=== PATIENT | female | born 1940 | race Hispanic/Latino ===

== ENCOUNTER 2018-06-07 14:49 | Emergency (ER) | payer MEDICARE, BC ==
[2018-06-07 14:50] VITALS: BMI 27.4
--- NOTE | 2018-06-07 15:14 | ED PDOC ---
Arrival/HPI - General Chief Complaint: Lower Extremity Problem/Injury Time Seen by Provider: 06/07/18 14:54 Historian: Patient, Family (daughter) - History of Present Illness Time/Duration: Other (several days) Symptom Onset: Gradual Symptom Course: Worsening Quality: Aching Severity Level: Mild Activities at Onset: Rest Associated Symptoms (Text): 06/07/18 15:12 Patient complains of a several day history of left lower extremity swelling and left calf pain. The right leg is not affected. There is no injury or trauma. She reports that in the morning the pain and swelling are better, but as the day progresses the pain and swelling become worse. She was directed to the emergency department by her PMD to rule out a DVT. No chest pain or dyspnea. No fever or chills. Past Medical History - Infectious Disease Hx of Infectious Diseases: None - Tetanus Immunization Tetanus Immunization: Unknown - Reproductive Menopause: Yes - Cardiac Hx Hypertension: Yes - Pulmonary Hx Respiratory Disorders: Yes Hx Asthma: Yes - Neurological Hx Paralysis: No - Renal Hx Renal Disorder: No - Endocrine/Metabolic Hx Hypothyroidism: Yes - Hematological/Oncological Hx Blood Transfusion Reaction: (NA) - Integumentary Hx Dermatological Disorder: No - Musculoskeletal/Rheumatological Hx Musculoskeletal Disorders: Yes (HX FX WRIST/ANKLE) - Gastrointestinal Hx Gastroesophageal Reflux: Yes - Genitourinary/Gynecological Hx Genitourinary Disorders: No - Psychiatric Hx Substance Use: No - Surgical History Hx Cataract Extraction: Yes (x2) Hx Cholecystectomy: Yes Other/Comment: ankle L - Anesthesia Hx Anesthesia Reactions: No Hx Malignant Hyperthermia: No - Suicidal Assessment Feels Threatened In Home Enviroment: No Family/Social History - Physician Review Nursing Documentation Reviewed: Yes Family/Social History: Unknown Family HX Smoking Status: Former Smoker (quit smoking many years ago) Hx Alcohol Use: No (RARELY) Hx Substance Use: No Hx Substance Use Treatment: No Allergies/Home Meds Allergies/Adverse Reactions: Allergies No Known Allergies Allergy (Verified 09/25/15 19:34) Home Medications: Home Meds Medication Instructions Recorded Confirmed Levothyroxine [Synthroid] 112 mcg PO QAM 02/18/13 03/04/18 Cholecalciferol (Vitamin D3) 5,000 iu PO DAILY 05/21/15 03/04/18 [Vitamin D3] Escitalopram [Lexapro] 10 mg PO HS 05/21/15 03/04/18 Aspirin [Ecotrin] 81 mg PO DAILY 05/17/16 03/04/18 Fenofibrate [Tricor] 145 mg PO DAILY 05/17/16 03/04/18 Multivit-Min/Iron/Folic/Lutein 1 tab PO DAILY 05/17/16 03/04/18 [Centrum Silver Women Tablet] Polyethylene Glycol 3350 [Miralax] 17 gm PO DAILY 03/04/18 03/04/18 Tiotropium Br/Olodaterol HCl 4 gm IH DAILY 03/04/18 03/04/18 [Stiolto Respimat Inhal [place]] Review of Systems - Physician Review All systems were reviewed & negative as marked: Yes - Review of Systems Constitutional: absent: Fatigue, Fevers Respiratory: absent: SOB, Cough, Sputum, Wheezing Cardiovascular: absent: Chest Pain, Palpitations, Syncope Gastrointestinal: absent: Abdominal Pain, Nausea, Vomiting Neurological: absent: Headache, Dizziness, Focal Weakness Physical Exam Vital Signs Temp Pulse Resp BP Pulse Ox 06/07/18 14:50 98.2 F 85 20 150/92 H 93 L Temperature: Afebrile Blood Pressure: Hypertensive Pulse: Regular Respiratory Rate: Normal Appearance: Positive for: Well-Appearing, Non-Toxic, Comfortable Pain Distress: None Mental Status: Positive for: Alert and Oriented X 3 - Systems Exam Head: Present: Atraumatic, Normocephalic Pupils: Present: PERRL Extroacular Muscles: Present: EOMI Conjunctiva: Present: Normal Mouth: Present: Moist Mucous Membranes Pharnyx: No: ERYTHEMA, EXUDATE, TONSILS ENLARGED Respiratory/Chest: Present: Clear to Auscultation, Good Air Exchange. No: Respiratory Distress, Accessory Muscle Use Cardiovascular: Present: Regular Rate and Rhythm, Normal S1, S2. No: Murmurs Abdomen: No: Tenderness, Distention, Peritoneal Signs, Rebound, Guarding Back: Present: Normal Inspection Upper Extremity: Present: Normal Inspection. No: Cyanosis, Edema Lower Extremity: Present: CALF TENDERNESS, NORMAL PULSES, Normal ROM, Lala's Sign, Tenderness, Swelling, Neurovascularly Intact, Other (Left lower leg swelling and calf tenderness.). No: Cyanosis, Erythema, Deformity Neurological: Present: GCS=15, CN II-XII Intact, Speech Normal, Motor Func Grossly Intact Skin: Present: Warm, Dry, Normal Color. No: Rashes Psychiatric: Present: Alert, Oriented x 3, Normal Insight, Normal Concentration Medical Decision Making - RAD Interpretation Radiology Orders: 06/07/18 15:10 DUPLEX LOWER EXTRM VEIN LEFT [US] Stat Venous Doppler of the left lower extremity as read by the radiologist is negative for DVT. Tourist Cabin Keeper: Radiologist Disposition/Present on Arrival - Present on Arrival Any Indicators Present on Arrival: No History of DVT/PE: No History of Uncontrolled Diabetes: No Urinary Catheter: No History of Decub. Ulcer: No History Surgical Site Infection Following: None - Disposition Have Diagnosis and Disposition been Completed?: Yes Diagnosis: Gastrocnemius strain, left Disposition: HOME/ ROUTINE Disposition Time: 16:24 Patient Plan: Discharge Condition: GOOD Discharge Instructions (ExitCare): Lower Extremity Muscle Strain (DC) Additional Instructions: Rest ice and elevation. Tylenol or Advil as directed on bottle as needed. Follow-up with PMD. Follow up in ER as needed. Forms: [employer] (Bengali)
[2018-06-07 15:32] LABS: BASO # 0.03 K/mm3 (0.0-2.0); BASO % 0.4 % (0.0-3.0); EOS # 0.1 (0.0-0.7); EOS % 1.8 % (1.5-5.0); LYMPH # 1.3 (1.2-3.4); LYMPH % 18.3 % (22.0-35.0); MEAN CELL VOLUME 90.4 fl (80.0-105.0); MEAN CORPUSCULAR HEMOGLOBIN 29.7 pg (25.0-35.0); MEAN CORPUSCULAR HGB CONC 32.8 g/dl (31.0-37.0); MEAN PLATELET VOLUME 9.1 fl (7.0-11.0); MONO # 0.5 (0.1-0.6); MONO % 7.3 % (1.0-6.0); RBC 4.38 10^6/uL (3.5-6.1); RED CELL DISTRIBUTION WIDTH 14.2 % (11.5-14.5); WHITE BLOOD COUNT 6.8 10^3/uL (4.5-11.0)
[2018-06-07 15:50] LABS: INR 1.04; PARTIAL THROMBOPLASTIN TIME 32.7 Seconds (26.9-38.3); PROTHROMBIN TIME 11.5 SECONDS (9.4-12.5)
[2018-06-07 15:52] LABS: ALB/GLOB RATIO 1.1 (1.1-1.8); ALBUMIN 4.4 g/dL (3.0-4.8); ALT/SGPT 18 U/L (7-56); AST/SGOT 46 U/L (14-36); BLOOD UREA NITROGEN 34 mg/dL (7-21); CALCIUM 10.9 mg/dL (8.4-10.5); GFR NON-AFRICAN AMERICAN 54
[2018-06-07 16:47] VITALS: BP 141/79; PULSE 63; RESP 18; TEMP 98.1; O2SAT 98
--- NOTE | 2018-06-10 18:48 | US ---
PROCEDURE: Left lower extremity venous US HISTORY: Leg pain and swelling. Evaluate for DVT. PHYSICIAN(S): Andres Arnold MD. TECHNIQUE: Duplex sonography and color-flow Doppler with graded compression were used to evaluate the deep venous system of the left lower extremity. The exam is somewhat limited by edema FINDINGS: The visualized deep venous system of the left lower extremity is sonographically normal and compressible. Normal wave forms and augmentation are seen. There is no sonographic evidence for deep venous thrombosis in the visualized segments of the left lower extremity. IMPRESSION: 1. No sonographic evidence for deep venous thrombosis in the visualized segments of the left lower extremity.
== END 2018-06-07 16:46 | disposition home or self-care (01) ==
LOC: ED 14:49
DX: S86.812A Strain of other muscle(s) and tendon(s) at lower leg level, left leg, initial encounter (principal); X58.XXXA Exposure to other specified factors, initial encounter; E03.9 Hypothyroidism, unspecified; I10 Essential (primary) hypertension; Z87.891 Personal history of nicotine dependence

== ENCOUNTER 2018-06-14 07:59 | Outpatient (CLI) | payer MEDICARE, BC | END 2018-06-14 08:00 | disposition home or self-care (01) | LOC: LAB 07:59 ==

== ENCOUNTER 2018-06-15 09:30 | Outpatient (CLI) | payer MEDICARE, BC | END 2018-06-15 09:31 | disposition home or self-care (01) | LOC: RAD 09:30 ==